=== PATIENT | female | born 1965 | race Caucasian/White ===

== ENCOUNTER 2016-05-09 13:41 | Day surgery (SDC) | END 2016-05-09 16:22 | disposition home or self-care (01) | DX: Z12.11 Encounter for screening for malignant neoplasm of colon (principal); D12.4 Benign neoplasm of descending colon; K64.8 Other hemorrhoids; K64.4 Residual hemorrhoidal skin tags; E03.9 Hypothyroidism, unspecified | CPT/HCPCS: 45380; 88305; Z7610 ==

== ENCOUNTER 2017-01-13 05:56 | Day surgery (SDC) | payer OTHER ==
[~2017-01-13] VITALS: Ht 160 cm; Wt 64.7 kg
[2017-01-13] VITALS (10 sets, daily range): BP systolic 111–137; BP diastolic 62–85; PULSE 67–86; RESP 9–25; Ht 160 cm; Wt 64.7 kg
[~2017-01-13 05:56] MED LIST: EYE DROPS; LEVOTHYROXINE
[2017-01-13] MEDS ORDERED: hydrALAzine 20 MG INJ IV PRN (06:30)
[2017-01-13] MEDS ORDERED: morphine (1 MG/ML) 10ML SYRINGE IV PRN ×3 (06:30)
[2017-01-13] MEDS ORDERED: ONDANSETRON 4 MG INJ IV PRN (06:30)
[2017-01-13] MEDS ORDERED: MEPERIDINE 25 MG INJ IV PRN (06:30)
[2017-01-13] MEDS ORDERED: OXYCODONE/ACETAMINOPHEN (5/325) TAB PO PRN ×2 (06:30)
[2017-01-13] MEDS ORDERED: HYDROmorphONE (0.2 MG/ML) 10ML SYG IV PRN ×3 (06:30)
[2017-01-13] MEDS ORDERED: SOD CHLORIDE 0.9% 1,000 ML IV SCH (06:30)
[2017-01-13] MEDS ORDERED: LABETALOL HCL 20MG INJ IV PRN (06:30)
[2017-01-13] MEDS ORDERED: DIPHENHYDRAMINE 50 MG INJ IV PRN (06:30)
[2017-01-13] MEDS ORDERED: MIDAZOLAM 1 MG/ML 2 ML INJ IV PRN (06:30)
[2017-01-13] MEDS ORDERED: FENTAnyl 50 MCG/ML VIAL IV PRN (06:30)
[2017-01-13] MEDS ORDERED: ATROPINE 1 MG/10 ML SYRINGE IV PRN (06:30)
[2017-01-13] MEDS ORDERED: EPHEDrine SULFATE 50 MG/5 ML SYG IV PRN (06:30)
[2017-01-13] MEDS ORDERED: CEFAZOLIN 1 GM/50 ML (PMX) 50 ML IVPB ONE (06:30)
[2017-01-13] MEDS ORDERED: SUGAMMADEX SODIUM 200 MG/2 ML VIAL IV ONE (07:00)
[2017-01-13] MEDS ORDERED: CEFAZOLIN 1 GM INJ ONE (07:00)
[2017-01-13] MEDS ORDERED: NEOSTIGMINE 3 MG/3 ML SYRINGE ONE (07:31)
[2017-01-13] MEDS ORDERED: LIDOCAINE 2% (SDV) 5 ML INJ ONE (07:31)
[2017-01-13] MEDS ORDERED: GLYCOPYRROLATE 0.4 MG INJ ONE (07:31)
[2017-01-13] MEDS ORDERED: PROPOFOL 20 ML ONE (07:31)
[2017-01-13] MEDS ORDERED: ROCURONIUM 50 MG INJ ONE (07:31)
[2017-01-13] MEDS ORDERED: FENTAnyl 50 MCG/ML VIAL ONE (07:31)
[2017-01-13] MEDS ORDERED: MIDAZOLAM 1 MG/ML 2 ML INJ ONE (07:32)
[2017-01-13] MEDS ORDERED: ONDANSETRON 4 MG INJ ONE (07:32)
[2017-01-13] MEDS ORDERED: DEXAMETHASONE 4 MG/ML 1 ML INJ ONE (07:33)
[2017-01-13] MEDS ORDERED: BUPIVACAINE 0.5%/EPI (SDV) 30 ML INJ ONE (07:35)
[2017-01-13 07:42] LABS: BASOPHIL # 0.1 10^3/ul (0.0-0.1); BASOPHILS % 1.4 % (0.0-2.0); EOSINOPHILS # 0.3 10^3/ul (0.0-0.5); EOSINOPHILS % 4.3 % (0.0-7.0); HEMATOCRIT 41.4 % (37.0-47.0); HEMOGLOBIN 13.5 g/dl (12.0-16.0); LYMPHOCYTES % 34.9 % (15.0-51.0); MEAN CORPUSCULAR HEMOGLOBIN 28.2 pg (29.0-33.0); MEAN CORPUSCULAR HGB CONC 32.6 g/dl (32.0-37.0); MEAN CORPUSCULAR VOLUME 86.4 fl (82.0-101.0); MEAN PLATELET VOLUME 11.5 fl (7.4-10.4); MONOCYTE # 0.5 10^3/ul (0.3-0.9); MONOCYTES % 7.7 % (0.0-11.0); NEUTROPHILS % 51.4 % (39.0-77.0); PLATELET COUNT 230 10^3/UL (140-415); RED BLOOD COUNT 4.79 10^6/ul (4.20-5.40); RED CELL DISTRIBUTION WIDTH 13.3 % (11.5-14.5); WHITE BLOOD COUNT 5.8 10^3/ul (4.8-10.8)
[2017-01-13 07:45] LABS: INR 0.91; PROTIME 12.2 Sec (12.2-14.2)
[2017-01-13 07:46] LABS: PARTIAL THROMBOPLASTIN TIME 30.5 Sec (25.0-35.0)
[2017-01-13 07:50] LABS: ALBUMIN 3.8 g/dl (3.3-4.9); ALBUMIN/GLOBULIN RATIO 1.15; BILIRUBIN,INDIRECT 0.2 mg/dl (0-1.1); BILIRUBIN,TOTAL 0.2 mg/dl (0.2-1.3); TOTAL PROTEIN 7.1 g/dl (6.1-8.1)
[2017-01-13 07:55] LABS: CALCIUM 9.6 mg/dl (8.4-10.2); CREATININE 0.67 mg/dl (0.44-1.00); POTASSIUM 4.1 mmol/L (3.5-5.1)
--- NOTE | 2017-01-13 08:55 | SIPON ---
Date/Time of Note Date/Time of Note DATE: 01/13/17 TIME: 08:53 Operative Report Preoperative Diagnosis Left breast mass Postoperative Diagnosis Same Operation/Procedure Performed Excision of left breast mass Surgeon see signature line mri assistant Dr. Ross Anesthesia: general Estimated blood loss: 0 - 10 ml's Transfusion Required none Specimen Left breast specimen Grafts/Implants none Complications none ANOOP LOPEZ MD Jan 13, 2017 08:55
[2017-01-13] MEDS ORDERED: HYDROCODONE/APAP (7.5/325) TAB PO PRN ×2 (09:00→09:30)
[2017-01-13] MEDS: FENTAnyl 50 MCG/ML VIAL IV PRN ×2 (09:09→09:43)
--- NOTE | 2017-01-13 10:32 | OPR ---
DATE OF OPERATION: 01/13/2017 PREOPERATIVE DIAGNOSIS: Left breast mass. POSTOPERATIVE DIAGNOSIS: Left breast mass. OPERATION PERFORMED: Excision of left breast mass. ANESTHESIA: General. ANESTHESIOLOGIST: Pascual Gamboa MD SURGEON: John See MD ROLL HAULER: Vishal Ross MD INDICATIONS FOR PROCEDURE: The patient is a 51-year-old female who presented with a palpable mass in the upper outer quadrant of her left breast. Core biopsy revealed probable benign etiology consistent with probable hemangioma. Patient was requesting excision and she consented and was scheduled for surgery. OPERATIVE PROCEDURE: The patient was brought to the operating theater, placed under general anesthesia. The left breast was prepped and draped in the usual sterile fashion. The mass, which was approximately 2-3 cm diameter was identified. An elliptical incision was made with a 15-blade scalpel, widely around the mass. Specimen was elevated and transected using cautery. It was sent for permanent pathologic analysis. Minimal bleeding was controlled with cautery. The skin was then reapproximated with 5- 0 PDS suture in subcuticular fashion and Benzoin and Steri-Strips were applied. The patient tolerated the procedure well. ESTIMATED BLOOD LOSS: Was approximately 5 mL. COMPLICATIONS: There were no complications. DISPOSITION: The patient was transported in stable condition to recovery room where circumferential compression dressing was applied. Dictated By: John See MD /carlitos/jesica /Document#: [id number]
== END 2017-01-13 11:05 | disposition home or self-care (01) ==
LOC: SUR 05:56 → SDS 05:56 → SUR 11:05
PROVIDERS: ATTEND Surgery Surgical Oncology
DX: D18.01 Hemangioma of skin and subcutaneous tissue (principal); E03.9 Hypothyroidism, unspecified
CPT/HCPCS: 19120; 80053; 84703; 85025; 85610; 85730; 88307; J0690; J1100; J2250; J2405; J3010; J7030; Z7512; Z7610; J2710

== ENCOUNTER 2018-10-10 08:34 | Emergency (ER) | payer OTHER ==
[~2018-10-10] VITALS: Ht 157.5 cm; Wt 70.0 kg
[2018-10-10 08:37] VITALS: Ht 157.5 cm; Wt 70.0 kg
[2018-10-10] MEDS ORDERED: KETOROLAC 60 MG INJ IM STA (09:54)
[2018-10-10] MEDS ORDERED: CYCLOBENZAPRINE 10 MG TAB PO ONE (10:00)
[2018-10-10] MEDS ORDERED: IBUP-1545 PO (13:03)
[2018-10-10] MEDS ORDERED: CEPH-443 PO (15:14)
[2018-10-10 15:36] VITALS: BP 139/89; PULSE 68; RESP 18
--- NOTE | 2018-10-10 17:52 | ERD ---
ER Documentation Chief Complaint Chief Complaint intermittent ap x 1 week worsen when sitting down, not vomiting no diarrhea HPI History of Present Illness: 52-year-old female who reports a past medical history of hypothyroid coming in today with complaint of intermittent abdominal pains been present for 5 days. Patient reports pain is to left lower quadrant. Patient denies genitourinary symptoms or gastrointestinal symptoms. Patient reports that she did exercise about a week ago and she felt like she told something in her left leg, but she is unsure if this is related to her abdominal pain. At home pharmacological/nonpharmacological treatment for symptoms: Denies Denies social concerns; Denies recent foreign travel ROS All systems reviewed and are negative except as per history of present illness. Medications Home Meds Active Scripts Cephalexin* (Keflex*) 500 Mg Capsule, 500 MG PO BID for BACTERIA IN URINE for 7 Days, CAP Prov:ZACHARY PENG V ANESTHESIA TECHNICIAN 10/10/18 Ibuprofen* (Ibuprofen*) 800 Mg Tab, 800 MG PO Q6H PRN for PAIN, #30 TAB Prov:ZACHARY PENG NP 10/10/18 Reported Medications [Eye Drops] No Conflict Check 05/09/16 [Levothyroxine] No Conflict Check 05/09/16 Allergies Allergies: Coded Allergies: No Known Allergy (Unverified , 05/09/16) PMhx/Soc History of Surgery: Yes (CS,BUNIONECTOMY) Anesthesia Reaction: No Hx Neurological Disorder: No Hx Respiratory Disorders: No Hx Cardiac Disorders: No Hx Psychiatric Problems: No Hx Miscellaneous Medical Probl: Yes (HYPOTHYROIDISM) Hx Alcohol Use: No Hx Substance Use: No Hx Tobacco Use: No Smoking Status: Never smoker FmHx Family History: No diabetes, No coronary disease Physical Exam Vitals Vital Signs Date Temp Pulse Resp B/P (MAP) Pulse Ox O2 O2 Flow FiO2 Time Delivery Rate 10/10/18 97.4 68 18 139/89 100 Room Air 15:36 (106) 10/10/18 98.1 69 18 160/90 99 08:37 (113) Physical Exam Const: No acute distress, afebrile Head: Atraumatic Eyes: Normal Conjunctiva ENT: Normal External Ears, Nose and Mouth. Neck: Full range of motion. No meningismus. Resp: Clear to auscultation bilaterally Cardio: Regular rate and rhythm, no murmurs Abd: Soft, non tender, non distended. No guarding, no masses, no rigidity. Unable to reproduce pain to abdomen during physical exam palpation. Skin: No petechiae or rashes Back: No midline or flank tenderness Ext: No cyanosis, or edema; LLE: Tenderness to palpation to posterior left lower extremity Neur: Awake and alert x3, speaking in clear sentences, no focal deficits or facial asymmetry Psych: Normal Mood and Affect Results 24 hrs Laboratory Tests Test 10/10/18 09:58 10/10/18 10:03 Urine Color YELLOW Urine Clarity CLEAR Urine pH 7.0 Urine Specific [place] 1.014 Urine Ketones NEGATIVE mg/dL Urine Nitrite NEGATIVE mg/dL Urine Bilirubin NEGATIVE mg/dL Urine Urobilinogen NEGATIVE mg/dL Urine Leukocyte Esterase 1+ Bertin/ul Urine Microscopic RBC 0 /HPF Urine Microscopic WBC 0 /HPF Urine Hemoglobin NEGATIVE mg/dL Urine Glucose NEGATIVE mg/dL Urine Total Protein NEGATIVE mg/dl POC Beta HCG, Qualitative NEGATIVE Current Medications Medications Dose Sig/Unique Start Time Status Last (Trade) Ordered Route PRN Stop Time Admin Dose Reason Admin Ketorolac 60 mg ONCE STAT 10/10/18 DC 10/10/18 Tromethamine IM 09:54 10:09 (Toradol) 10/10/18 09:56 10 mg ONCE ONCE 10/10/18 DC Cyclobenzapri PO 10:00 ne HCl 10/10/18 10:01 (Flexeril) Procedures/MDM ED COURSE: ED course includes a thorough examination and history. The patient was stable throughout ED course. I kept the patient and/or family informed of laboratory and diagnostic imaging results throughout the ED course. LABS: Urine negative. Urinalysis positive for 1+ leukocyte Estrace. MEDICATIONS GIVEN IN ER: Ketorolac, cyclobenzaprine Patient tolerated medication well with no adverse reactions. Patient reported improvement in pain. DIAGNOSTIC IMAGING: Read by radiologist. Pelvic ultrasound showed: IMPRESSION: 1. 2.0 x 2.0 x 2.2 cm partially calcified posterior intramural / submucosal fibroid with obscuration of the endometrium. 2. Unable to obtain Doppler flow to the left ovary secondary to posterior position of the ovary. Torsion is not excluded, although there are no secondary signs of ovarian torsion. Clinical correlation is required. Consider contrast enhanced CT or MRI for further evaluation, as clinically indicated. 3. Unremarkable appearance of the right ovary. RPTAT: HH .Anusha Dean MD, Date Time Electronically viewed and signed by .Anusha Dean MD, on 10/10/2018 12:[address] showing: IMPRESSION: No evidence of urolithiasis, obstructive uropathy, diverticulitis or appendicitis. Diverticulosis. Multiple solid indeterminate hepatic masses. Question hemangiomas. Correlation with postcontrast CT or MRI or ultrasound is suggested for more definitive diagnosis. .Alvaro Nassar MD, Date Time Electronically viewed and signed by .Alvaro Nassar MD, on 10/10/2018 14:56 PROCEDURES: None. MEDICAL DECISION MAKING: Patient reassessment at 1300: Patient reports unchanged pain after administration of ketorolac. Case discussed with Dr. Concepcion: Due to patient having persistent pain, and ultrasound without any acute findings, will proceed forward with CT abdomen pelvis to rule out any pathological findings. Low suspicion for infectious process. Low suspicion for life-threatening medical emergency. Otherwise healthy patient presenting with constellation of symptoms likely representing leukocytes in urine/diverticulosis/left lower quadrant abdominal pain as characterized by history, physical exam findings, lab findings, rad iology findings. Patient reassessment @ 1525: Results of CT discussed with patient. Patient hemodynamically stable. No respiratory distress, otherwise relatively well appearing and nontoxic. Disposition given. Patient educated on diagnoses, prescriptions, follow-up care, return precautions. Strict return precautions given for worsening condition; questions answered discharge. Patient verbalizes understanding of discharge instructions. PRESCRIPTIONS FOR HOME: Cephalexin (will prophylactically treat for urinary tract infection due to the presence of leukocyte esterase and urinalysis and patient with lower abdominal pain; urine culture ordered) Ibuprofen DISPOSITION: DISCHARGE At this time, patient is stable for discharge and outpatient management. I have instructed the patient to follow-up with his/her primary care physician in 1-2 days. I have discussed with the patient the possibility of needing to see a specialist for further workup and imaging studies if symptoms persist. I have instructed the patient to promptly return to the ER for any new or worsening symptoms including increased pain, fever, nausea, vomiting, weakness or LOC. The patient and/or family expressed understanding of and agreement with this plan. All questions were answered. Home care instructions were provided. DISCLAIMER: Inadvertent spelling and grammatical errors are likely due to EHR/dictation soft parnell use and do not reflect on the overall quality of patient care. Also, please note that the electronic time recorded on this note does not necessarily reflect the actual time of the patient encounter. Departure Diagnosis: Primary Impression: LLQ abdominal pain Additional Impressions: Diverticulosis Leukocytes in urine Condition: Stable Patient Instructions: Abdominal Pain, Diverticulosis Referrals: [facility] YOU HAVE RECEIVED A MEDICAL SCREENING EXAM AND THE RESULTS INDICATE THAT YOU DO NOT HAVE A CONDITION THAT REQUIRES URGENT TREATMENT IN THE EMERGENCY DEPARTMENT. FURTHER EVALUATION AND TREATMENT OF YOUR CONDITION CAN WAIT UNTIL YOU ARE SEEN IN YOUR DOCTORS OFFICE WITHIN THE NEXT 1-2 DAYS. IT IS YOUR RESPONSIBILITY TO M SAVAGE AN APPOINTMENT FOR FOLOW-UP CARE. IF YOU HAVE A PRIMARY DOCTOR --you should call your primary doctor and schedule an appointment IF YOU DO NOT HAVE A PRIMARY DOCTOR YOU CAN CALL OUR PHYSICIAN REFERRAL HOTLINE AT IF YOU CAN NOT AFFORD TO SEE A PHYSICIAN YOU CAN CHOSE FROM THE FOLLOWING [facility] [address] [facility]. [facility] [address] [facility] [facility] [address] [facility] [facility] [address] [facility] [facility] [address] [facility]. [facility]. [address] [facility]. [facility] YOU HAVE RECEIVED A MEDICAL SCREENING EXAM AND THE RESULTS INDICATE THAT YOU DO NOT HAVE A CONDITION THAT REQUIRES URGENT TREATMENT IN THE EMERGENCY DEPARTMENT. FURTHER EVALUATION AND TREATMENT OF YOUR CONDITION CAN WAIT UNTIL YOU ARE SEEN IN YOUR DOCTORS OFFICE WITHIN THE NEXT 1-2 DAYS. IT IS YOUR RESPONSIBILITY TO MAKE AN APPOINTMENT FOR FOLOW-UP CARE. IF YOU HAVE A PRIMARY DOCTOR --you should call your primary doctor and schedule and appointment IF YOU DO NOT HAVE A PRIMARY DOCTOR YOU CAN CALL OUR PHYSICIAN REFERRAL HOTLINE AT . IF YOU CAN NOT AFFORD TO SEE A PHYSICIAN YOU CAN CHOSE FROM THE FOLLOWING [facility] INSTITUTIONS: [facility] [address] [place] [address] [facility] [address] [place] [address] [facility] + [facility] [address] [place] [address] Additional Instructions: Thank you very much for allowing us to participate in your care. Your health and safety is our top priority at [facility]. It is important to read all discharge instructions and education provided in your discharge packet. Call your primary care doctor TOMORROW for an appointment during the next 2-4 days and bring all the information and medications prescribed. Have prescriptions filled and follow precisely the directions on the label. -Ibuprofen is a medication that will help with pain/inflammation. At the dosage of 600 to 800 mg, this will help with inflammation/swelling. Take this medication as prescribed. If the symptoms get worse and your provider is unavailable, return to the Emergency Department immediately. ZACHARY PENG NP Oct 10, 2018 17:52
== END 2018-10-10 15:37 | disposition home or self-care (01) ==
LOC: FTE 08:34
DX: K57.30 Diverticulosis of large intestine without perforation or abscess without bleeding (principal); R82.998 Other abnormal findings in urine; E03.9 Hypothyroidism, unspecified
CPT/HCPCS: 74176; 76830; 76856; 81001; 81025; 87086; 96372; 99285; J1885